=== PATIENT | male | born 1970 | race Caucasian/White ===

== ENCOUNTER 2024-01-13 16:38 | Emergency (ER) | payer SELFPAY ==
[~2024-01-13] VITALS: Ht 180.3 cm; Wt 87.0 kg
[2024-01-13 16:58] VITALS: BP 156/99; PULSE 78; RESP 12; TEMP 98.3; O2SAT 100
[2024-01-13] MEDS ORDERED: BO1 TP (19:48)
== END 2024-01-13 20:00 | disposition home or self-care (01) ==
LOC: ER 16:38
DX: M79.672 Pain in left foot (principal); E11.9 Type 2 diabetes mellitus without complications; I10 Essential (primary) hypertension
CPT/HCPCS: 99282